=== PATIENT | male | born 1965 | race Caucasian/White ===

== ENCOUNTER 2017-01-02 19:20 | Emergency (ER) | payer OTHER ==
--- NOTE | 2017-01-02 19:23 | UCPHY ---
H & P Patient Type: New HPI/ROS: HPI CHIEF COMPLAINT: Abdominal cramping HISTORY OF PRESENT ILLNESS: Patient very pleasant 51-year-old male no significant medical or surgical history presents to the urgent care with left upper quadrant abdominal cramping that is now resolved. Associated nausea. States this happened 2 months Saturday night with 2 episodes of vomiting felt is was constipation. He did take multiple stool softeners and MiraLax had a diarrheal bowel movement small. He felt better Saturday and Saturday. Saturday which is today he developed left upper quadrant crampy abdominal pain again similar Saturday night. This is after he ate a burrito and a Vietnamese dish. It is since resolved. He did not have vomiting this time he did have 2 episodes of nonbilious nonbloody vomiting last time. He also tells me he had 1 little episode of left flank pain. It is since resolved. Past Medical History: No significant medical history Past Surgical History: No significant surgical history Social History: Denies use of drugs alcohol tobacco products Family History: Noncontributory ROS REVIEW OF SYSTEMS: A comprehensive 10 point review of systems is otherwise negative aside from elements mentioned in the history of present illness. Exam Constitutional triage nursing summary reviewed, vital signs reviewed, awake/ alert. Eyes normal conjunctivae and sclera, EOMI, PERRLA. HENT normal inspection, atraumatic, moist mucus membranes, no epistaxis, neck supple/ no meningismus, no raccoon eyes. Respiratory clear to auscultation bilaterally, normal breath sounds, no respiratory distress, no wheezing. Cardiovascular rate normal, regular rhythm, no murmur, no edema, distal pulses normal. Gastrointestinal soft, nontender, no rebound, no guarding, normal bowel sounds , no distension, no pulsatile mass. Genitourinary no CVA tenderness. Musculoskeletal no midline vertebral tenderness, full range of motion, no calf swelling, no tenderness of extremities, no meningismus, good pulses, neurovascularly intact. Skin pink, warm, & dry, no rash, skin atraumatic. Neurologic awake, alert and oriented x 3, AAOx3, moves all 4 extremities equally, motor intact, sensory intact, CN II-XII intact, normal cerebellar, normal vision, normal speech. Psychiatric normal mood/affect. Heme/Lymph/Immune no lymphadenopathy. Differential diagnosis includes but is not limited to and in no particular order : Constipation, Bowel obstruction, appendicitis, gallbladder disease, diverticulitis, colitis, enteritis, perforated viscus, gastritis, GERD, esophagitis, urinary tract infection, pyelonephritis, kidney stones Medical Decision Making: Plan for this patient IV establishment blood draw, KUB. He has no symptoms at this time. Abdomen is soft nontender. He is agreeable with this plan. Re-evaluation: 2021: blood work reviewed reassuring. No high white count. Electrolytes appropriate. Lipase appropriate. Affect is appropriate. Urinalysis shows no blood. KUB pending. Most likely allow this patient to go home with constipation MiraLax prescription. He understands return to Urgent Care emergency room if he has worsening abdominal pain, fever, vomiting. [place] diet for next 3-4 days. Source: Patient - Family History Significant Family History: No pertinent family hx Constitutional: Initial Vital Signs Temperature (C) 36.9 C 01/02/17 19:30 Heart Rate 96 01/02/17 19:30 Respiratory Rate 16 01/02/17 19:30 Blood Pressure 146/98 H 01/02/17 19:30 O2 Sat (%) 94 01/02/17 19:30 O2 Delivery Mode Room Air Allergies/Adverse Reactions: clarithromycin [From Biaxin] Allergy (Severe, Verified 01/02/17 19:33) Rash Penicillins Allergy (Unknown, Verified 01/02/17 19:33) Unknown Home Medications: Medication Instructions Recorded Polyethylene Glycol 3350 [Miralax 17 gm PO DAILY #4 pkt 01/02/17 17 gm (*)] Zyrtec 01/02/17 Medical Decision Making - Data Points Laboratory Results: Laboratory Results 01/02/17 19:50 01/02/17 19:50 Medications Given: Discontinued Medications Sodium Chloride (Ns) 1,000 mls @ 0 mls/hr IV ONCE ONE PRN Reason: Wide Open Stop: 01/02/17 19:37 Last Admin: 01/02/17 19:50 Dose: 1,000 mls Departure - Departure Disposition: Home, Routine, Self-Care Clinical Impression: Constipation Condition: Good Instructions: Constipation (ED) Additional Instructions: 1. Eat a bland diet for the next 3-4 days. 2. no spicy fatty greasy foods. 3. take MiraLax as prescribed. 4. return emergency room if you have worsening abdominal pain fever vomiting. Referrals: NONE *PRIMARY CARE P,. [Primary Care Provider] - As per Instructions Prescriptions: Polyethylene Glycol 3350 [Miralax 17 gm (*)] 17 gm PO DAILY #4 pkt - PQRS PQRS Measurement: n/a
[2017-01-02 19:32] VITALS: RESP 16
[2017-01-02] MEDS ORDERED: NS 1,000 ML IV ONE (19:36)
[2017-01-02 19:57] LABS: % IMMATURE GRANULYOCYTES 0.2 % (0.0-1.1); ABSOLUTE IMMATURE GRANULOCYTES 0.02 10^3/uL (0.00-0.10); ADD DIFF? NO; ADD MORPH? NO; ADD SCAN? NO; ATYPICAL LYMPHOCYTE FLAG 0 (0-99); FRAGMENT RBC FLAG 0 (0-99); HEMATOCRIT 42.1 % (40.0-51.0); HEMOGLOBIN 15.1 g/dL (13.7-17.5); LEFT SHIFT FLG 0 (0-99); LIPEMIA HEMOLYSIS FLAG 90 (0-99); MEAN CELL HEMOGLOBIN 30.4 pg (27.9-34.1); MEAN CELL HEMOGLOBIN CONCENTR. 35.9 g/dL (32.4-36.7); MEAN CELL VOLUME 84.7 fL (81.5-99.8); MEAN PLATELET VOLUME 9.5 fL (8.7-11.7); PLATELET CLUMPS FLAG 10 (0-99); PLATELET COUNT 280 10^3/uL (150-400); RED BLOOD CELL COUNT 4.97 10^6/uL (4.40-6.38); RED CELL DISTRIBUTION WIDTH 12.8 % (11.5-15.2)
[2017-01-02 20:11] LABS: ALANINE AMINOTRANSFERASE 26 IU/L (21-72); ALBUMIN 3.9 g/dL (3.5-5.0); ALKALINE PHOSPHATASE 68 IU/L (38-126); ANION GAP 14 mEq/L (8-16); ASPARTATE AMINOTRANSFERASE 18 IU/L (17-59); BILIRUBIN,TOTAL 0.6 mg/dL (0.1-1.4); BILIRUBIN-CONJUGATED 0.2 mg/dL (0.0-0.5); BILIRUBIN-UNCONJUGATED 0.4 mg/dL (0.0-1.1); CALCIUM 9.4 mg/dL (8.5-10.4); CARBON DIOXIDE 25 mEq/l (22-31); CHLORIDE 101 mEq/L (97-110); CREATININE 0.8 mg/dL (0.7-1.3); GLOMERULAR FILTRATION RATE > 60; GLUCOSE 96 mg/dL (70-100); POTASSIUM 3.6 mEq/L (3.5-5.2); SODIUM 140 mEq/L (134-144); TOTAL PROTEIN 6.9 g/dL (6.3-8.2)
[2017-01-02 20:12] LABS: COLOR YELLOW; LEUKOCYTE ESTERASE,URINE NEGATIVE (NEGATIVE); NITRITE,URINE NEGATIVE (NEGATIVE); PH,URINE 8.5 (5.0-7.5)
[2017-01-02 21:32] VITALS: BP 122/83; PULSE 61; TEMP 98.6; O2SAT 98
== END 2017-01-02 21:30 | disposition home or self-care (01) ==
LOC: CED 19:20
DX: K59.00 Constipation, unspecified (principal); Z88.0 Allergy status to penicillin
CPT/HCPCS: 74000-PO; 80048-PO; 80076-PO; 81003-PO; 83690-PO; 85025-PO; 96360-PO; 99204-PO; G0463-PO